=== PATIENT | female | born 1935 | race Caucasian/White ===

== ENCOUNTER → 2020-04-26 | Outpatient (CLI) | payer MEDICARE, BC | LOC: LAB 07:43 | PROVIDERS: Internal Medicine | DX: H91.21 Sudden idiopathic hearing loss, right ear (principal) ==

== ENCOUNTER → 2021-07-18 | Outpatient (CLI) | payer MEDICARE, BC | LOC: RAD 10:00 → MAMMO 11:30 → RAD 11:30 | DX: Z13.820 Encounter for screening for osteoporosis (principal); M81.0 Age-related osteoporosis without current pathological fracture; M85.88 Other specified disorders of bone density and structure, other site ==

== ENCOUNTER 2021-08-28 18:03 | Emergency (ER) | payer MEDICARE, BC ==
[2021-08-28] MEDS ORDERED: LEVOTHYROXINE0.05 MG PO (18:34)
[2021-08-28] MEDS ORDERED: KAPSPARGO SPRI100 MG PO (18:35)
[2021-08-28] MEDS ORDERED: LISINOPRIL10 MG PO (18:36)
[2021-08-28] MEDS ORDERED: HYDROCHLOROTH12.5 M2 PO (18:37)
[2021-08-28] MEDS ORDERED: ATORVASTATIN CA20 MG PO (18:38)
[2021-08-28] MEDS ORDERED: NORVASC 5MG5 MG/TAB PO (18:38)
[2021-08-28 20:15] VITALS: BP 127/64
== END 2021-08-28 20:16 | disposition home or self-care (01) ==
LOC: ED 18:03
DX: S30.0XXA Contusion of lower back and pelvis, initial encounter (principal); S20.212A Contusion of left front wall of thorax, initial encounter; Z28.310 Unvaccinated for COVID-19; W18.30XA Fall on same level, unspecified, initial encounter; Y92.009 Unspecified place in unspecified non-institutional (private) residence as the place of occurrence of the external cause

== ENCOUNTER → 2021-08-30 | Outpatient (CLI) | payer MEDICARE, BC ==
[~2021-08-30] MED LIST: ATORVASTATIN CA20 MG PO; HYDROCHLOROTH12.5 M2 PO; KAPSPARGO SPRI100 MG PO; LEVOTHYROXINE0.05 MG PO; LISINOPRIL10 MG PO; NORVASC 5MG5 MG/TAB PO
== END ==
LOC: LAB 09:30
DX: M81.0 Age-related osteoporosis without current pathological fracture (principal)